=== PATIENT | male | born 1975 | race Caucasian/White ===

== ENCOUNTER 2023-10-02 20:37 | Inpatient (IN) | payer OTHER, SELFPAY ==
[2023-10-02 19:10] VITALS: BP 142/82; BMI 23.2
[2023-10-02] MEDS: DILAUDID 1 MG IV (19:20)
--- NOTE | 2023-10-02 19:59 | ED.GENMED ---
History of Present Illness
General
Chief Complaint: Musculo-Skeletal Complaint
Source: patient, spouse and ambulance crew
Time Seen by Provider: 10/02/23 19:14
Travel History
Have you had any contact with someone who has COVID-19?: No
Do you have any symptoms of coronavirus? Fever > 100 degrees, chills, cough, shortness of breath, sore throat, loss of taste or smell, muscle aches, or headache?: No
History of Present Illness
History of Present Illness:
40-year-old male comes in complaining of severe right groin pain. The patient was at home and had slipped on the tile. His leg went out from under him and he landed straight down. He states his leg was then in abducted position from his hip.
Patient complains of severe in the right groin area. Patient is from [place] and just arrived to visit family
Past History
Past History
ED Past Medical History: Asthma
Phy Exam
Physical Exam
Physical Exam:
CONSTITUTIONAL Vital signs reviewed, Patient alert and oriented to person, place and time. Severe pain distress
HEAD atraumatic, normocephalic.
EYES eyelids normal to inspection, Extraocular muscles intact, Conjunctiva normal, Sclera normal.
NECK normal range of motion, Trachea midline, no jugular venous distention.
RESP no respiratory distress
BACK No obvious deformities
UPPER EXTREMITY Gross Range of motion normal, gross motor strength normal
LOWER EXTREMITY unable to range the right hip due to pain. Moderate to severe tenderness at the medial aspect of the proximal thigh. Moderate tenderness at the right groin.
NEURO Speech normal, No focal motor deficits include, Ketty coma scale 15, Memory normal, Cranial Nerves intact to screening exam.
SKIN Skin warm, dry, and normal in color.
PSYCHIATRIC Patient oriented to person place and time, Normal affect.
Course
Orders/Labs/Results
Orders:
Orders
10/02/23 Breakfast
Regular
At Your Request: Full Participation
10/02/23 19:14
HYDROmorphone [Dilaudid] 1 mg IV NOW STA
10/02/23 19:15
Hip, Right 2-3 Views [CR Hip - RT w/wo Pel 2-3 Vw*] Urgent
Comment:
Reason For Exam: fall
Include a pelvis x-ray?: Yes
10/02/23 20:10
Complete Blood Count/With Diff Urgent
Comprehensive Metabolic Panel Urgent
10/02/23 20:29
Admit/Transfer Patient As Directed
Co-Sign Provider:
Level of Care: Inpatient admission
Assign to:: Medical/Surgical
Physician / Group: ronda
Diagnosis: hip fracture
Reason for Hospitalization: hip fracture
Expected length of stay greater than two midnights?: Yes
ELOS- Estimated Length of Stay in days: 3
I certify the patient meets the requirements for IP care: Yes
10/02/23 20:30
Code Status As Directed
Resuscitation Status: Full Code
10/02/23 22:24
Docusate Sodium [Colace] 100 mg PO BID
Magnesium Hydroxide [Milk of Magnesia] 30 ml PO DAILYPRN PRN
Oxycodone [Roxicodone] 5 mg PO Q4HPRN PRN
Sennosides [Senokot] 17.2 mg PO BID
Tamsulosin [Flomax] 0.4 mg PO DAILYPRN PRN
10/02/23 22:24
ORTHOPEDIC CONSULT Routine
Consulting Provider: Charlie Rubin
Was physician already notified: Yes
Activity As Directed
Activity Level: Bedrest
Bladder Scan As Directed
Follow Bladder Retention/Intermittent Cath Algorithm?: Yes
PRN if no void in __ hours: 6
Comment: if not voiding 6 hrs upon arrival to floor, bladder scan & follow algorithm
Intake/ Output As Directed
Frequency: Per unit guidelines
Pneumatic Compression Sleeves As Directed
Type: Thigh high
Straight Cath As Directed
Frequency: Per Retention Algorithm
Additional Instructions: straight cath as needed per acute urinary retention algorithm for 24 hrs
Additional Instructions: for bladder scan greater than 400 mL
Vital Signs As Directed
Frequency: Per unit guidelines
DX Deep Vein Thrombosis Video Routine
10/03/23 00:00
Acetaminophen [Tylenol] 650 mg PO Q4HWA
10/03/23 Breakfast
NPO
Allow oral meds: Yes
Allow clear liquids: No
Abnormal Lab Results
10/02/23
20:10
RBC 4.49 L 10^6/uL
(4.70-6.10)
Hct 37.5 L %
(39.0-52.0)
MCHC 37.1 H g/dL
(33.0-37.0)
Absolute Neuts (auto) 6.9 H 10^3/uL
(1.4-6.5)
Lymphocytes % 16.8 L %
(20.5-51.1)
Potassium 3.3 L mmol/L
(3.5-5.1)
Glucose 110 H mg/dl
(70-99)
10/02/23 20:10
10/02/23 20:10
Vital Signs
Initial and Last Documented VS:
Initial Vital Signs
Temp Pulse Resp BP Pulse Ox
98.7 F 101 20 142/82 100
10/02/23 19:10 10/02/23 19:10 10/02/23 19:10 10/02/23 19:10 10/02/23 19:10
Last Documented Vital Signs
Temp Pulse Resp BP Pulse Ox
98.7 F 78 20 121/72 96
10/03/23 00:34 10/03/23 00:34 10/03/23 00:34 10/03/23 00:34 10/03/23 00:34
MDM/Problems Addressed
MDM/Problems Addressed:
Intertrochanteric hip fracture
*Radiology
Radiology exam reviewed: preliminary read by ED provider (Intertrochanteric hip fracture)
*Pulse Oximetry
Patient hypoxic: no
*Critical Care Note
Total Time (30-74mins, 75-104mins- exclusive of procedures): Not Applicable
Data Reviewed
Source: patient, family and ambulance crew
Further Testing Considered But Not Given:
Consider head CT but no head strike consider head CT but no head strike
Patient Management
Discussion with other providers: Hospitalist and Clinical Courier (Case discussed with orthopedics)
Escalation/DeEscalation of care consider admission/obs:
Right hip fracture and otherwise healthy male. Admit
ED Attending Note
-
Portions of this chart may have been created with voice recognition software.� Occasional wrong word or��sound alike� substitutions may have occurred due to the inherent limitations of voice recognition software.
Discharge Plan
Departure
Patient Disposition: Admit
Date of Disposition: 10/02/23
Time of Disposition: 19:59
Admit to: Med/Surg
Presentation/result/management discussed w/ accepting MD/DO: Hospitalist
Discharge Problem:
Hip fracture, intertrochanteric
Interventions
Interventions:
*Risk Screen - Suicide Last Done: 10/02/23 19:16
*General Assessment Last Done: 10/02/23 19:16
*Neglect/Abuse Screening Last Done: 10/02/23 19:16
ED- Fall Risk Assessment Last Done: 10/02/23 21:56
*ED COVID-19 Vaccine History Last Done: 10/02/23 19:16
*Nursing Disposition Last Done: 10/02/23 22:00
ED-Musculoskeletal Assessment Last Done: 10/02/23 19:28
Discharge Date and Time
Discharge Date/Time: 10/02/23 22:14
[2023-10-02 20:18] LABS: % Basophils 0.9 % (0-2); % Eosinophils 2.2 % (0-6); % Immature Granulocytes 0.4 % (0-0.5); % Lymphocytes 16.8 % (20.5-51.1); % Monocytes 5.7 % (1.7-9.3); Absolute Basophils 0.1 10^3/uL (0-0.2); Absolute Eosinophils 0.2 10^3/uL (0-0.7); Absolute Lymphocytes 1.6 10^3/uL (1.2-3.4); Absolute Monocytes 0.5 10^3/uL (0.1-0.6); Absolute Neutrophils 6.9 10^3/uL (1.4-6.5); Hematocrit 37.5 % (39.0-52.0); Hemoglobin 13.9 g/dL (13.0-18.0); Mean Corp Hgb Conc. 37.1 g/dL (33.0-37.0); Mean Corpuscular Volume 83.5 fL (80.0-94.0); Mean Platelet Volume 9.6 fL (7.4-10.4); Nucleated Red Blood Cells % 0 % (-); Platelet Count 249 10^3/uL (130-400); Red Blood Cell Count 4.49 10^6/uL (4.70-6.10); Red Cell Dist. Width 11.6 % (11.5-14.5); White Blood Cell Count 9.4 10^3/uL (4.8-10.8)
[2023-10-02 20:34] LABS: ALT (SGPT) 32 U/L (0-50); AST (SGOT) 29 U/L (17-59); Albumin 4.2 g/dl (3.5-5.0); Alkaline Phosphatase 93 U/L (38-126); Blood Urea Nitrogen 17 mg/dl (9-20); Calcium 9.3 mg/dl (8.4-10.2); Carbon Dioxide 22 mmol/L (22-30); Chloride 107 mmol/L (98-107); Estimated Creatinine Clearance 104 ml/min; Glucose 110 mg/dl (70-99); Potassium 3.3 mmol/L (3.5-5.1); Sodium 137 mmol/L (135-145); Total Bilirubin 0.6 mg/dl (0.2-1.3); Total Protein 6.6 g/dl (6.3-8.2); eGFR > 60.00
[2023-10-02 21:00] VITALS: BP 114/73
--- NOTE | 2023-10-02 22:02 | HPS.HSE ---
Family Physician
-
Family Physician: NOT KNOW UNKNOWN - PT DOES
Chief Complaint
-
Hip pain
History of Present Illness
48 man was walking into his kitchen, slipped, fell and broke his hip. No significant PMH. He believes he felt the bone breaking before he hit the ground.
Medical History
Past Medical History
Past Medical History: Reports Other
Additional Past Medical History:
Occasional asthma. Treated with rescue inhaler.
Past Surgical History: Reports None
Social History
Tobacco: Non-smoker
Alcohol: Occasional
Drug: None
Personal:
Living: With Family
Employment: Employed
Family History
Family History: Not pertinent
Allergies / Home Medications
Allergies reflects when Allergies were last updated in [facility].
Home Medications with original date entered in [facility]
Allergy/Medication List:
Allergies
Allergy/AdvReac Type Severity Reaction Status Date / Time
No Known Allergies Allergy Verified 10/02/23 19:18
No meds.
Review of Systems
-
History Source: Patient
A 12 point ROS was completed and negative except as noted: Yes
Physical Exam
Vital Signs
Vital Signs
Temp Pulse Resp BP Pulse Ox
98.7 F 88 13 114/73 95
10/02/23 19:10 10/02/23 21:45 10/02/23 21:45 10/02/23 21:00 10/02/23 21:45
Physical Exam
General: Well Developed, Well Nourished, No Apparent Distress, Comfortable and Conversant
HEENT: NormoCephalic, Moist mucous membranes, Atraumatic, Good Dentition, Nose Appears Normal and Ears Appear Normal
Respiratory: Clear
Cardiac: S1/S2 and Regular Rhythm
GI: Soft, Non Tender and Non Distended
Musculoskeletal: No Clubbing, No Cyanosis and No Edema
Skin: Warm and Dry; No Rash or Jaundice
Neuro: Awake, Alert, Oriented and AO x 3
Psych: Calm
Laboratory Results
-
10/02/23 20:10
10/02/23 20:10
Laboratory Results
Total Bilirubin 0.6 mg/dl (0.2-1.3) 10/02/23 20:10
AST 29 U/L (17-59) 10/02/23 20:10
ALT 32 U/L (0-50) 10/02/23 20:10
Alkaline Phosphatase 93 U/L (38-126) 10/02/23 20:10
Data Reviewed
-
Lab Data: Labs Reviewed by me
Impression/Plan
-
IMPRESSION:
48 man with broken hip. XRay shows:
There is a likely essentially nondisplaced intertrochanteric fracture of the proximal right femur.
The remaining osseous structures appear intact.
There is no suspected focal cortical bony destructive process.
No radiopaque soft tissue abnormality is seen.
PLAN:
1. Broken hip. Appears to be from atypical fall.
Ortho consult
pain control
NPO after MN
Likely surgery in am
Otherwise medically stable
Full code
primary DVTp per surgical team, VCD for now.
--- NOTE | 2023-10-02 22:10 | PTCARENOTE ---
pt arrived to [facility] from ED via stretcher, assisted into [facility] air bed. AAOx3, pleasant and oriented to room. VSS, no c/o pain unless being trasferred. plan of care explained to patient and at beside. questions regarding OR and post op
care answered to best of ability. assessment on going.
[2023-10-02] MEDS: KCL 40 MEQ PO (22:53)
[2023-10-02] MEDS: COLACE PO (22:54)
[2023-10-02] MEDS: SENOKOT PO (22:54)
[2023-10-02 23:22] VITALS: BP 126/77; BMI 22.8
[2023-10-02] MEDS: TYLENOL 650 MG PO (23:42)
[2023-10-03] VITALS (9 sets, daily range): BP systolic 106–139; BP diastolic 63–81; PULSE 101
[2023-10-03] MEDS: ZOFRAN 4 MG IV (00:22)
[2023-10-03] MEDS: TYLENOL 650 MG PO ×4 (05:09→20:03)
[2023-10-03 06:20] LABS: Hematocrit 39.1 % (39.0-52.0); Hemoglobin 13.6 g/dL (13.0-18.0); Mean Corp Hgb Conc. 34.8 g/dL (33.0-37.0); Mean Corpuscular Hgb 30.8 pg (27.0-31.0); Mean Corpuscular Volume 88.5 fL (80.0-94.0); Mean Platelet Volume 10.1 fL (7.4-10.4); Platelet Count 222 10^3/uL (130-400); Red Blood Cell Count 4.42 10^6/uL (4.70-6.10); Red Cell Dist. Width 11.6 % (11.5-14.5); White Blood Cell Count 9.3 10^3/uL (4.8-10.8)
[2023-10-03 06:47] LABS: Blood Urea Nitrogen 16 mg/dl (9-20); Calcium 9.2 mg/dl (8.4-10.2); Carbon Dioxide 26 mmol/L (22-30); Chloride 105 mmol/L (98-107); Estimated Creatinine Clearance 115 ml/min; Glucose 129 mg/dl (70-99); Potassium 4.2 mmol/L (3.5-5.1); Sodium 138 mmol/L (135-145); eGFR > 60.00
[2023-10-03] MEDS: SENOKOT PO (07:36)
[2023-10-03] MEDS: COLACE PO (07:36)
[2023-10-03] MEDS: TYLENOL PO ×2 (07:37→23:53)
--- NOTE | 2023-10-03 08:08 | CON.ORTHO ---
Consultation
-
Date/Time Consultation Requested: 10/02/2023
Date/Time Consultation Performed: 10/03/2023
Requesting Provider: RAJINDER Schroeder
Performing Provider: Danyelle Camacho PA-C, for Dr. Rubin
Reason for Consultation: Right hip intertrochanteric fracture
Consultation - Orthopedics
History
HPI: This is a 48-year-old male who presented to [facility] emergency department after sustaining a fall onto his right hip. He reports he was walking into the kitchen when he changed over from a carpeted area to linoleum. He believes
both of his feet slipped out from under him, landing directly on his right hip. He immediately experienced groin pain and inability to ambulate. X-rays taken in the emergency department showed evidence of a nondisplaced intertrochanteric fracture
of his right hip. He does report a history of back pain recently for which she has been taking naproxen, but otherwise denies any prior issues with his right hip. Our orthopedic specialty was consulted and to discuss definitive management of his
right hip fracture going forward.
Past medical history: Asthma.
Past surgical history: Tubes in ears as a child.
Social history: denies tobacco use. Lives in [place].
Review of systems: All systems reviewed and negative except for those mentioned in HPI.
Allergies / Home Medications
Allergy/AdvReac Type Severity Reaction Status Date / Time
No Known Allergies Allergy Verified 10/02/23 19:18
Vital Signs / Lab Results
Temp Pulse Resp BP Pulse Ox
98.4 F 88 16 139/71 94
10/03/23 07:10 10/03/23 07:10 10/03/23 07:10 10/03/23 07:10 10/03/23 07:10
10/03/23 05:34
10/03/23 05:34
Physical examination:
General: WD/WN male in no acute distress at rest. AAO x 4.
HEENT: AT/NC, neck supple.
Lungs: Non labored breathing on room air, no audible wheezing.
Heart: RRR.
Right hip: Mild swelling and TTP over lateral hip. ROM not tested. N/v intact distally.
Radiographic studies:
X-rays of the right hip from 10/02/2023 shows evidence of a non displaced intertrochanteric fracture.
Assessment / Plan
Assessment: Right hip intertrochanteric fracture.
Plan: Unfortunately, Shelton sustained a right hip fracture during his fall yesterday. We discussed treatment recommendations going forward to include both surgical and non surgical interventions. At this time, recommendation is to proceed with
surgery in the form of a right hip open reduction, internal fixation in the form of gamma nail. This will be done under the direction of Dr. Rubin on . The procedure was discussed at length, along with the associated risks, benefits, and
expected recovery process. Both surgical and blood transfusion consents were obtained and placed in the patient's chart. His right hip was marked as the correct surgical site. IV antibiotics are on-call to the OR. He has been n.p.o. since
midnight. He does live in [place], so we will see how he does with PT and whether he will be discharged home or need to go to rehab postoperatively. He will be on aspirin 325 mg p.o. daily for DVT prophylaxis postoperatively. All questions were
answered and patient and his were in agreement with treatment recommendations.
--- NOTE | 2023-10-03 10:05 | W.IMMPOSTOP ---
Surgical Immed Post Op Note
-
Primary Surgeon: Caryn
Assisting Surgeon: Danyelle Camacho PA-C
Pre-op Diagnosis: Right hip intertrochanteric fracture
Post-op Diagnosis: Same
Procedure Performed: Right hip Gamma nail fixation
Anesthesia Type: General
Specimen / Cultures: Right femoral reaming
Estimated Blood Loss: 10cc
Complications: None
Operative Findings: Dictated
Plan:
- WBAT RLE
- PT/ OT
- ASA 325 daily for 30 days
[2023-10-03] MEDS: NORMOSOL-R 1000 IV (11:02)
--- NOTE | 2023-10-03 11:19 | PTCARENOTE ---
Pt returned from to 2S in bed. RLE aquacels x3 C/D/I. RLE with decreased movement, neurovascular assessment otherwise WDL. IVF infusing per order. Pt drowsy sleeping between care, easily arouses to verbal stimuli. Bed locked and in the lowest
position, safety maintained. Oriented to room and call hanson, at bedside.
--- NOTE | 2023-10-03 15:15 | CM ---
Patient with right hip Fx who is s/p Right hip Gamma nail fixation. PT/OT Evals pending.
Met with patient, Connie and sister in law Katelin;
the patient resides with his and their children in [place] in a 2 story house with 6 + 6 outside stairs, 13 stairs to bedroom/bath.
The patient was independent in ADLs and ambulation.
He and his are here visiting his mother in law in [place]- she has a 1 story house with ramp at entrance.
The patient has no DME, prior VN or SNF.
The patient has no PCP.
[place] [facility] [place]acy in [place] - [place] [id number] [facility]
Patient/, AYESHA wanted to discuss possible d/c options.
Patient interested in discharging to his mother in law's house in [place] with VN (as he has no PCP ortho MD would be asked to sign VN orders).
If does not do well with rehab he would be interested in going to [facility].
Plan follow up after PT/OT Evals.
[2023-10-03] MEDS: ANCEF 5 IV (17:14)
[2023-10-03] MEDS: ASPIRIN 325 MG PO (17:14)
--- NOTE | 2023-10-03 18:11 | W.PN.HOSP.TC ---
Today's Communication/Plan
-
Patient doing well
Continue Aspirin 325 daily DVT prophylaxis
Assessment / Plan
Assessment / Plan
Physical Exam
General: Well Developed, Well Nourished, No Apparent Distress, Comfortable and Conversant
HEENT: Normocephalic, Moist mucous membranes
Respiratory: Clear
Cardiac: S1/S2 and Regular Rhythm
GI: Soft, Non Tender and Non Distended
Musculoskeletal: No Cyanosis and No Edema
Skin: Warm and Dry; No Rash or Jaundice
Neuro: Awake, Alert, Oriented and AO x 3
Psych: Calm

Assessment/Plan
Right hip intertrochanteric fracture status post right hip Gamma nail fixation
-Ortho consulted, recommendations appreciated
-Surgery performed on October 03, 2023
-WBAT RLE
-PT/ OT
-ASA 325 daily for 30 days
History of Asthma
-Stable
Otherwise medically stable
Full code
primary DVT PPx: Aspirin 325 mg daily
Anticipated Discharge: 24 - 48 hours
Subjective/Interval History
-
Date of Service: October 03, 2023
Patient was seen and examined after his surgery. He was sitting up in his chair comfortably and denied any pain or any complaints.
Objective Data
-
Labs:
Laboratory Results
10/03/23
05:34
WBC 9.3
Hgb 13.6
Hct 39.1
Plt Count 222
Sodium 138
Potassium 4.2 D
Chloride 105
Carbon Dioxide 26
BUN 16
Creatinine 0.8
Glucose 129 H
Calcium 9.2
Vital Signs:
Vital Signs
Temp Pulse Resp BP Pulse Ox
97.7 F 93 18 111/77 97
10/03/23 15:10 10/03/23 15:10 10/03/23 15:10 10/03/23 15:10 10/03/23 15:10
I&O
10/02/23 10/03/23 10/04/23
06:59 06:59 06:59
Intake Total 1160 / 1160
Output Total 350 / 350 800 / 800
Balance -350 / -350 360 / 360
[2023-10-03] MEDS: CELEBREX 100 MG PO (20:02)
[2023-10-03] MEDS: SENOKOT 17.1999999999999993 MG PO (20:04)
[2023-10-03] MEDS: COLACE 100 MG PO (20:05)
[2023-10-04] VITALS (7 sets, daily range): BP systolic 105–137; BP diastolic 62–71; PULSE 79–83
[2023-10-04] MEDS: ANCEF 5 IV (00:33)
[2023-10-04] MEDS: TYLENOL 650 MG PO ×5 (04:14→19:32)
[2023-10-04] MEDS: ROXICODONE 5 MG PO ×3 (05:31→22:58)
[2023-10-04 06:52] LABS: Hematocrit 34.6 % (39.0-52.0); Mean Corp Hgb Conc. 34.7 g/dL (33.0-37.0); Mean Corpuscular Hgb 31.1 pg (27.0-31.0); Mean Corpuscular Volume 89.6 fL (80.0-94.0); Mean Platelet Volume 10.4 fL (7.4-10.4); Platelet Count 191 10^3/uL (130-400); Red Blood Cell Count 3.86 10^6/uL (4.70-6.10); Red Cell Dist. Width 11.9 % (11.5-14.5); White Blood Cell Count 11.2 10^3/uL (4.8-10.8)
[2023-10-04 07:20] LABS: Blood Urea Nitrogen 18 mg/dl (9-20); Calcium 8.9 mg/dl (8.4-10.2); Carbon Dioxide 24 mmol/L (22-30); Chloride 107 mmol/L (98-107); Estimated Creatinine Clearance 115 ml/min; Glucose 115 mg/dl (70-99); Potassium 4.2 mmol/L (3.5-5.1); Sodium 137 mmol/L (135-145); eGFR > 60.00
--- NOTE | 2023-10-04 08:07 | W.PN.HOSP.TC ---
Today's Communication/Plan
-
Physiatry consult, ?[facility]
Assessment / Plan
Assessment / Plan
Assessment/Plan
Right hip intertrochanteric fracture status post right hip Gamma nail fixation
-Ortho consulted, recommendations appreciated
-Surgery performed on October 03, 2023
-WBAT RLE
-PT/ OT
-ASA 325 daily for 30 days
History of Asthma
lungs totally clear
BPH
due to immobility, will check UA
Constipation
continue Colace, Senokot
Otherwise medically stable
Full code
primary DVT PPx: Aspirin 325 mg daily
Physiatry consult
PT/OT
Potential [facility] candidate
Pt lives in [place], was visiting in-laws when fell and broke hip, if felt not a candidate for acute rehab, will need decision whether he will get PT locally or upon return to [place], pending decision on acute rehab
Anticipated Discharge: 24 - 48 hours
Subjective/Interval History
-
Date of Service: October 04, 2023
Awake, alert, moderate pain with movement
Objective Data
-
Labs:
Laboratory Results
10/04/23
06:12
WBC 11.2 H
Hgb 12.0 L
Hct 34.6 L
Plt Count 191
Sodium 137
Potassium 4.2
Chloride 107
Carbon Dioxide 24
BUN 18
Creatinine 0.8
Glucose 115 H
Calcium 8.9
Vital Signs:
Vital Signs
Temp Pulse Resp BP Pulse Ox
98.2 F 77 14 112/71 99
10/04/23 07:05 10/04/23 07:05 10/04/23 07:05 10/04/23 07:05 10/04/23 07:05
I&O
10/03/23 10/04/2310/04/24
06:59 06:59 06:59
Intake Total 1640 / 1640
Output Total 350 / 350 1150 / 1150
Balance -350 / -350 490 / 490
Review of Systems
-
History Source: Patient and Coordinated Provider (reviewed with DANY Bassett)
Constitutional: Denies Fever
EENT: Reports No Symptoms Reported
Respiratory: Reports No Symptoms
Cardiac: Reports No Symptoms
Abdomen/GI: Reports Constipated
Genitourinary: Reports No Symptoms (hx of BPH)
Musculoskeletal: Reports Joint Pain
Neuro: Reports No Symptoms
Physical Exam
-
General: Well Developed, Well Nourished and No Apparent Distress
HEENT: Normocephalic, Atraumatic and Moist Mucous Membranes
Respiratory: Clear to Auscultation; Negative Wheezes, Rales or Rhonchi
Cardiac: Regular Rhythm and S1/S2
GI: Soft, Nontender and Nondistended
Musculoskeletal: No Clubbing, No Cyanosis and No Edema
[2023-10-04] MEDS: COLACE 100 MG PO ×2 (08:36→19:32)
[2023-10-04] MEDS: CELEBREX 100 MG PO ×2 (08:36→19:32)
[2023-10-04] MEDS: SENOKOT 17.1999999999999993 MG PO ×2 (08:36→19:32)
[2023-10-04] MEDS: ASPIRIN 325 MG PO (08:36)
--- NOTE | 2023-10-04 11:15 | W.PN.ORTHO ---
Today's Communication / Plan
-
POD #1 s/p right hip gamma nail
- WBAT with walker.
- PT/OT to tolerance.
- ASA 325 mg po daily x 4 weeks for DVT prophylaxis.
- Dressings good for 7 days.
- Harpal to be removed in 2 weeks, repeat x-rays in 4 weeks.
- Appreciate case management's efforts in d/c planning - options [facility] vs. home with home care.
- Will continue to follow.
Assessment
.
Distal Motor Intact: Yes
Dressing:
Clean, dry and intact.
Assessment:
POD #1 s/p right hip gamma nail
- WBAT with walker.
- PT/OT to tolerance.
- ASA 325 mg po daily x 4 weeks for DVT prophylaxis.
- Dressings good for 7 days.
- Harpal to be removed in 2 weeks, repeat x-rays in 4 weeks.
- Appreciate case management's efforts in d/c planning - options [facility] vs. home with home care.
- Will continue to follow.
Plan
.
Surgery / Date: 10/03/23 - right hip gamma nail - Dr. Rubin
DVT Prophylaxis: Aspirin
Activity:
Out of bed.
PT/OT
Discharge Plan: Home w/ Outpatient PT and Rehab
Subjective
.
.:
Patient resting comfortably in bed on my arrival. Admits to some discomfort about medial thigh and knee with motion, but comfortable at rest.
Vital Signs and Labs
.
Vital Signs and Labs:
Lab Results
10/04/23 06:12
10/04/23 06:12
Temp Pulse Resp BP Pulse Ox
98.2 F 77 14 112/71 99
10/04/23 07:05 10/04/23 07:05 10/04/23 07:05 10/04/23 07:05 10/04/23 07:05
Physical Exam
-
Right hip: dressings c/d/i. No erythema or drainage. Mild diffuse swelling, no ecchymosis. No swelling of knee. Gentle ROM with minimal pain, negative logroll. Calf soft and non tender. N/v intact distally
--- NOTE | 2023-10-04 13:41 | CM ---
Received notification from RN that patient/family wanted to meet with CM. Spoke with patient's who explained that although patient is progressing well, he is far from his baseline which is independent without device. Patient's stated that
they are in visiting from [place] and she would be unable to transport patient back until he is closer to his previous level of functioning. Patient's stated that they also have a young daughter for whom they provide care. Patient's
stated that if insurance authorizes, she would would like for patient to go to acute rehab as this would help his regain a lot of the strength that he lost after the surgery and she would at least be able to transport him home so that he can follow
up with outpatient rehab.
Family updated that referral will be made to acute rehab and that admissions will look to determine that he is appropriate in the am. Patient's family very appreciative.
Plan: Case management will continue to follow and assist with discharge planing. Family hopeful for acute rehab transfer to [facility] (1st choice) if there is availability and if auth can be obtained.
[2023-10-04 15:33] LABS: Urine Albumin Trace (Neg - Trace); Urine Bilirubin 1+ (Negative); Urine Character Clear (Clear); Urine Color Amber; Urine Glucose Trace (Negative); Urine Ketone 1+ (Negative); Urine Leukocyte Trace (Negative); Urine Nitrite Negative (Negative); Urine Occult Blood Negative (Negative); Urine Specific Gravity 1.025 (<1.030); Urine Urobilinogen 1+ (Neg - 1+)
[2023-10-04 15:43] LABS: Urine Mucus Many; Urine Squamous Cell 0-2 /LPF (Few)
[2023-10-04 15:44] LABS: Urine Bacteria Few (Negative); Urine Calcium Oxalate Crystals Seen; Urine Red Blood Cell 0-2 /HPF (0-2)
[2023-10-05] MEDS: TYLENOL PO (00:12)
[2023-10-05] MEDS: TYLENOL 650 MG PO ×6 (03:23→23:16)
[2023-10-05 05:55] LABS: Hematocrit 31.8 % (39.0-52.0); Hemoglobin 11.1 g/dL (13.0-18.0); Mean Corp Hgb Conc. 34.9 g/dL (33.0-37.0); Mean Corpuscular Hgb 30.7 pg (27.0-31.0); Mean Corpuscular Volume 88.1 fL (80.0-94.0); Mean Platelet Volume 10.4 fL (7.4-10.4); Platelet Count 179 10^3/uL (130-400); Red Blood Cell Count 3.61 10^6/uL (4.70-6.10); White Blood Cell Count 7.3 10^3/uL (4.8-10.8)
[2023-10-05 06:40] LABS: Blood Urea Nitrogen 21 mg/dl (9-20); Calcium 8.9 mg/dl (8.4-10.2); Carbon Dioxide 26 mmol/L (22-30); Chloride 107 mmol/L (98-107); Estimated Creatinine Clearance 92 ml/min; Glucose 93 mg/dl (70-99); Potassium 4.2 mmol/L (3.5-5.1); Sodium 139 mmol/L (135-145); eGFR > 60.00
[2023-10-05 07:00] VITALS: BP 119/72
--- NOTE | 2023-10-05 07:25 | W.PN.ORTHO ---
Addendum entered and electronically signed by Charlie Rubin MD 10/05/23 13:12:
Patient seen and examined.
Agree with A/P from Nolvia Swanson PA-C
Patient has swelling over right hip. Dressings are C/D/I
There is pain and weakness with hip and knee ROM
Pain control
D/C planning
Original Note:
Today's Communication / Plan
-
POD #2 s/p right hip gamma nail
- WBAT with walker.
- PT/OT to tolerance.
- ASA 325 mg po daily x 4 weeks for DVT prophylaxis.
- Dressings good for 7 days.
- Continue with pain medications and ice as needed.
- Harpal to be removed in 2 weeks, repeat x-rays in 4 weeks.
- Appreciate case management's efforts in d/c planning - options [facility] vs. home with home care.
- Will continue to follow.
Assessment
.
Distal Motor Intact: Yes
Dressing:
Clean, dry and intact.
Plan
.
Surgery / Date: 10/03/23 - right hip gamma nail - Dr. Rubin
DVT Prophylaxis: Aspirin
Activity:
Out of bed.
PT/OT
Subjective
.
.:
Patient resting comfortably in bed on my arrival. He admits to some swelling and discomfort to the thigh and with motion of the knee. He reports that the hardest thing for him is transitioning from sitting to standing and getting in and out of the
bed. His pain improves with pain medications and ice.
Vital Signs and Labs
.
Vital Signs and Labs:
Lab Results
10/05/23 04:48
10/05/23 04:48
Temp Pulse Resp BP Pulse Ox
98.4 F 74 18 107/67 99
10/04/23 23:00 10/04/23 23:00 10/04/23 23:00 10/04/23 23:00 10/04/23 23:00
Physical Exam
-
Right hip: dressings c/d/i. No erythema or drainage. Mild diffuse swelling, no ecchymosis. No swelling of knee. Gentle ROM with minimal pain, negative logroll. Calf soft and non tender. N/v intact distally
--- NOTE | 2023-10-05 08:02 | W.PN.HOSP.TC ---
Addendum entered and electronically signed by Robbie Chao MD 10/05/23 13:34:
call from respiratory therapy, pt refusing Mininebs, wants MDI only. Order changed
Original Note:
Today's Communication/Plan
-
Physiatry consult pending
Assessment / Plan
Assessment / Plan
Assessment/Plan
Right hip intertrochanteric fracture status post right hip Gamma nail fixation
-Ortho consulted, recommendations appreciated
-Surgery performed on October 03, 2023
-WBAT RLE
-PT/ OT
-ASA 325 daily for 30 days
History of Asthma
lungs with wheeze noted
will order scheduled Duonebs for today along with Claritin
BPH
due to immobility, UA demonstrates minimal WBC/Bact consistent with chronic prostatitis
Constipation
continue Colace, Senokot
Otherwise medically stable
Full code
primary DVT PPx: Aspirin 325 mg daily
Physiatry consult
PT/OT
Potential [facility] candidate
Pt lives in [place], was visiting in-laws when fell and broke hip, if felt not a candidate for acute rehab, will need decision whether he will get PT locally or upon return to [place], pending decision on acute rehab
Duonebs, Claritin
Anticipated Discharge: 24 - 48 hours
Subjective/Interval History
-
Date of Service: October 05, 2023
Awake, alert, had BM late yesterday
Objective Data
-
Labs:
Laboratory Results
10/05/23
04:48
WBC 7.3
Hgb 11.1 L
Hct 31.8 L
Plt Count 179
Sodium 139
Potassium 4.2
Chloride 107
Carbon Dioxide 26
BUN 21 H
Creatinine 1.0
Glucose 93
Calcium 8.9
Vital Signs:
Vital Signs
Temp Pulse Resp BP Pulse Ox
97.4 F 69 18 119/72 100
10/05/23 07:00 10/05/23 07:00 10/05/23 07:00 10/05/23 07:00 10/05/23 07:00
I&O
10/04/23 10/05/23 10/06/23
06:59 06:59 06:59
Intake Total 1640 / 1640 1080 / 1080
Output Total 1150 / 1150 300 / 300
Balance 490 / 490 780 / 780
Review of Systems
-
History Source: Patient and Coordinated Provider (reviewed with DANY Bassett)
Constitutional: Denies Fever
EENT: Reports Other (nasal stuffiness)
Respiratory: Reports No Symptoms; Denies Trouble Breathing (denies sob, states had hx of asthma as a child, outgrew it, though during high pollen season does require occassional doses of albuterol)
Cardiac: Reports No Symptoms
Abdomen/GI: Reports Constipated (had hard BM last evening)
Genitourinary: Reports No Symptoms (hx of BPH)
Musculoskeletal: Reports Joint Pain (rt hip)
Neuro: Reports No Symptoms
Physical Exam
-
General: Well Developed, Well Nourished and No Apparent Distress
HEENT: Normocephalic, Atraumatic and Moist Mucous Membranes
Respiratory: Wheezes (end expiratory wheeze with good air movement); Negative Rales or Rhonchi
Cardiac: Regular Rhythm and S1/S2
GI: Soft, Nontender and Nondistended
Musculoskeletal: No Clubbing, No Cyanosis and No Edema
[2023-10-05] MEDS: ASPIRIN 325 MG PO (08:43)
[2023-10-05] MEDS: CLARITIN 10 MG PO (08:43)
[2023-10-05] MEDS: CELEBREX 100 MG PO ×2 (08:43→20:31)
[2023-10-05] MEDS: SENOKOT 17.1999999999999993 MG PO (08:44)
[2023-10-05] MEDS: COLACE 100 MG PO ×2 (08:44→20:31)
[2023-10-05 10:51] VITALS: BP 134/84; PULSE 88; O2SAT 100
[2023-10-05] MEDS: ROXICODONE 5 MG PO ×2 (10:54→16:23)
--- NOTE | 2023-10-05 12:10 | CON.MD ---
Consultation - Medical
-
Referring Provider: Dr. Robbie Chao
Chief Complaint: Right hip fracture
History of Present Illness: 48-year-old male with PMH (as below) presented to [facility] on 10/02/2023 with right hip pain after slip and fall in the kitchen floor. X-rays noting a nondisplaced intertrochanteric right hip fracture. On
10/03/2023 he had a right hip cephalomedullary nail fixation with [place] gamma nail by Dr. Charlie Rubin. He is weightbearing as tolerated with aspirin 325 mg for DVT prophylaxis for 4 weeks.
Past Medical History: Asthma, BPH
Procedure History: Tubes in ears as a child.
Family History: None pertinent
Social History:
Functional Level Premorbidly: Independent with all activities
Functional Level Currently:��10/04/23 Supervision for ADLs and bed mobility except for min assist for shower transfer. Supervision for transfers. Ambulated 200 feet with supervision.
10/05/23: Min A bed mobility, supervision transfers. Ambulated 25 feet x 1 with supervision.
Tobacco: Denies
Alcohol: Occasional
Drug use: Denies
Lives with: and 6-year-old daughter
24-hour assistance available: No
Number of floors: 2
# steps to enter: 6+6 steps to enter
# steps to second floor: Full flight
Potential First floor set up: Could stay at mother or [id number] who have one-story homes.
Driving: Yes
Occupation: Employed
Allergies:
Allergy/AdvReac Type Severity Reaction Status Date / Time
No Known Allergies Allergy Verified 10/02/23 19:18
Review of Systems:
Constitutional: (x) abNormal _fatigue
Eye: (x) Normal _
Ear/Nose/Throat: (x) Normal _
Respiratory: (x) Normal _
Cardiovascular: (x) Normal _
Gastrointestinal: (x) Normal _
Genitourinary: (x) Normal _
Musculoskeletal: (x) abNormal _Right hip pain and stiffness.
Integumentary: (x) Normal _
Neurologic: (x) Normal _
Psychiatric: (x) Normal _
Endocrine: (x) Normal _
Hematologic/Lymphatic: (x) Normal _
Allergic/Immunologic: (x) Normal _
Medications:
Active Current Visit Medication List
Category Date Time Status
Acetaminophen [Tylenol] Med 10/03/23 12:00 Active
650 mg PO Q4HWA
Albuterol [ProAIR HFA INHALER] Med 10/05/23 14:02 Active
2 puff INH R Q4HPRN PRN
Aspirin Med 10/03/23 18:00 Active
325 mg PO DAILY
Celecoxib [Celebrex] Med 10/03/23 20:00 Active
100 mg PO BID
Docusate Sodium [Colace] Med 10/02/23 22:24 Active
100 mg PO BID
Flush (0.9% Sodium Chloride) [Flush (Nss)] Med 10/02/23 22:00 Active
See Dose Instructions IV PER PROTOCOL
Loratadine [Claritin] Med 10/05/23 09:00 Active
10 mg PO DAILY
Mag Hydrox/Al Hydrox/Simeth [Maalox] Med 10/03/23 09:49 Active
30 ml PO Q4HPRN PRN
Magnesium Hydroxide [Milk of Magnesia] Med 10/02/23 22:24 Active
30 ml PO DAILYPRN PRN
Ondansetron Injectable [Zofran] Med 10/03/23 09:49 Active
4 mg IV Q6HPRN PRN
Oxycodone [Roxicodone] Med 10/02/23 22:24 Active
5 mg PO Q4HPRN PRN
Sennosides [Senokot] Med 10/02/23 22:24 Active
17.2 mg PO BID
Tamsulosin [Flomax] Med 10/02/23 22:24 Active
0.4 mg PO DAILYPRN PRN
Vitals:
Temp Pulse Resp BP Pulse Ox
98.2 F 88 18 115/65 100
10/05/23 15:00 10/05/23 15:00 10/05/23 15:00 10/05/23 15:00 10/05/23 15:00
Height 5 ft 10 in
Actual Weight 72.212 kg
Body Mass Index (BMI) 22.8
Physical Exam:
General Appearance/Observation: Well-developed, well-nourished male in pain with movement
Pain/Comfort Assessment: Moderate to severe hip pain.
Mood/Affect: Appropriate
Integumentary/Operative Site: Right hip aquacels with scant drainage
�� Pressure Ulcer Evaluation: absent over heels.
Eyes: Conjunctiva/Lids: normal ��� Pupils: pupils equal round and reactive to light and Accommodation
Ears/Nose/Throat: oral mucosa moist,� throat clear.������������ Lips/Teeth/Gums: normal
Neck: No muscle spasm or tenderness
Cardiovascular: Heart: regular, no murmur
Pulses: dorsalis pedis 2+ bilaterally
Respiratory: Respiratory Effort/Chest Expansion: normal ������ Auscultation: Clear to auscultation bilaterally
Gastrointestinal: abdomen not tender, no distension, normal abdominal bowel sounds
Genitourinary: No Carl
Extremities: Edema: Mild right hip edema Cyanosis: None Trophic changes: None
Neurology Exam:
Orientation: Alert, Oriented to self, Time, Place
Memory: Intact for recent medical concerns.
Comprehension: Intact
Two step command: Intact
Cranial Nerves:
�� CNII: Pupillary light reflex: Intact���
�� CN VII: Facial movement: Symmetric
�� CN VIII: Hearing: Normal
�� CN IX/X: Speech & swallow: Normal, Position of Uvula: Midline
�� CN XI: Shoulder shrug: Symmetric
�� CN XII: Tongue protrusion: Midline
Sensory:
�� Light touch: Intact in bilateral upper and lower extremities, no extinction to double simultaneous stimulation
Reflexes:
�� Biceps: 2+ bilaterally
�� Brachioradialis: 2+ bilaterally
�� Triceps: 2+ bilaterally
�� Patellar: 2+ bilaterally
�� Achilles: 2+ bilaterally
�� Babinski: Down going bilaterally
�� Clonus: None
�� Paulina: Negative bilaterally
Musculoskeletal:Motor: (Manual muscle scale 0-5)
Muscle SA EF WE EE FF FA HF KE DF EHL PF
Right� 5 5 5 5 5 5 1* 1* 5 5 5
Left 5 5 5 5 5 5 5 5 5 5 5
*limited by pain
Tone: Normal in all extremities
Range of Motion: Passively within normal limits in all extremities except left hip limited by pain.
Lab Results
Laboratory Data
10/05/23 04:48
10/05/23 04:48
Total Bilirubin 0.6 mg/dl (0.2-1.3) 10/02/23 20:10
AST 29 U/L (17-59) 10/02/23 20:10
ALT 32 U/L (0-50) 10/02/23 20:10
Alkaline Phosphatase 93 U/L (38-126) 10/02/23 20:10
Total Protein 6.6 g/dl (6.3-8.2) 10/02/23 20:10
Albumin 4.2 g/dl (3.5-5.0) 10/02/23 20:10
Diagnostic Results: as per HPI
Assessment
48-year-old male with PMH (Asthma, BPH) presented to [facility] on 10/02/2023 with right hip pain after slip and fall in the kitchen floor. X-rays noting a nondisplaced intertrochanteric right hip fracture. On 10/03/2023 he had a right hip
cephalomedullary nail fixation with [place] gamma nail by Dr. Charlie Rubin. He is weightbearing as tolerated with aspirin 325 mg for DVT prophylaxis for 4 weeks.
Plan
PM&R PT/OT to increase independence with ADLs, improve balance, coordination, endurance, strength, mobility, community reintegration, decreased burden of care on others and family education.
Status post right hip ORIF with IM nail 10/03/23: Monitor incision, pain control, incision care per orthopedics, may shower. Maintain full range of motion.
-Case discussed with Dr. Rubin, healing well, minimal swelling.
Asthma: Continue inhaler as needed.
Post operative Anemia: Continue to monitor.
FEN: Regular diet
Pain: acetaminophen or oxycodone as needed. Encourage pain medication usage
- Can trial lidocaine patches over right hip.
- Trial baclofen 5 mg TID for spasms, can increase to 10 mg.
- Ice right hip.
Bowel: Colace and Senna, PRN bisacodyl.
Bladder: Time void, PVRs, PRN straight cath.
DVT Prophylaxis: Mechanical and full dose aspirin per ortho.
Pulmonary: Incentive spirometry
Safety: Continue to reinforce assistance with all transfers.
Code Status:� Full code
Dispo (date/plan/equipment needs): Home with family care.
Discharge Destination: Would benefit from acute inpatient rehabilitation given uncontrolled pain, limited ambulation to 25 feet.
Functional and Medical Goals: Modified Independent with ADL�s, ambulation, transfers
Summary of recommendations:
- Discharge Destination: Would benefit from acute inpatient rehabilitation given uncontrolled pain, limited ambulation to 25 feet.
Status post right hip ORIF with IM nail 10/03/23: Monitor incision, pain control, incision care per orthopedics, may shower. Maintain full range of motion.
Post operative Anemia: Continue to monitor.
Pain: acetaminophen or oxycodone as needed. Encourage pain medication usage
- Can trial lidocaine patches over right hip.
- Trial baclofen 5 mg TID for spasms, can increase to 10 mg.
- Ice right hip.
Bowel: Colace and Senna, PRN bisacodyl.
Bladder: Time void, PVRs, PRN straight cath.
DVT Prophylaxis: Mechanical and full dose aspirin per ortho.
A total of 80 minutes were spent with the patient preparing for the evaluation, obtaining history, performing examination and evaluation, counseling, data review, case management, care coordination, order puller, and EMR documentation. Reviewed
concerns with patient, , sister in law, nursing, Dr. Rubin.
Thank you for allowing me to care for your patient. Please contact me with any questions or concerns.
--- NOTE | 2023-10-05 14:27 | CM ---
Discussed discharge plan of care at length with patient, and [id number] (via phone). Gave detailed explanation of discharge process, the difference between acute and sub-acute rehabs and the need for an insurance authorization. All
questions answered. Family wants acute rehab. Stock Buyer evaluated patient and determined patient was too high functioning and did not meet criteria for acute rehab. This CM had given [employer] lists for both acute and sub-acute prior to
Physiatry evaluation. CM requested choosing several preferences and CM will forward referrals. Awaiting preferences for SNF.
[2023-10-05 14:29] VITALS: BP 109/77; PULSE 105
[2023-10-05 15:00] VITALS: BP 115/65
[2023-10-05] MEDS: SENOKOT PO (20:44)
[2023-10-05 23:00] VITALS: BP 109/63
[2023-10-06] MEDS: TYLENOL 650 MG PO ×4 (03:00→16:06)
[2023-10-06] MEDS: ROXICODONE 5 MG PO ×2 (04:27→11:17)
--- NOTE | 2023-10-06 07:27 | W.PN.UPDATE ---
Update Note
Progress Note Update
Mr. Hare is POD3 following his right hip gamma nail performed by Dr. Rubin. He is resting comfortably in bed this morning. He does report a consistent aching pain in his hip and thigh. He was able to work with physical therapy yesterday without
significant difficulty.
Directed exam of the right hip reveals Aqaucel dressing with slight strikethrough of blood. Expected post-operative edema about the hip and proximal thigh. Thigh soft and compressible. Calf soft and nontender. Patient able to wiggle toes, plantar
and dorsiflex ankle. Neurovascularly intact distally.
hgb pending this AM.
48 yo M POD3 right hip gamma nail under the direction of Dr. Rubin
- WBAT with walker. PT/OT to tolerance.
- Recommend ASA 325 mg po daily x 4 weeks for DVT prophylaxis.
- Maintain dressings until 7-10 days post-op. [place] to be removed in 2 weeks, repeat x-rays in 4 weeks.
- Continue with pain medications and ice as needed.
- Appreciate case management's efforts in d/c planning - options [facility] vs. home with home care.
- Will continue to follow.
[2023-10-06 07:39] LABS: Hematocrit 31.9 % (39.0-52.0); Mean Corp Hgb Conc. 34.5 g/dL (33.0-37.0); Mean Corpuscular Hgb 30.6 pg (27.0-31.0); Mean Corpuscular Volume 88.9 fL (80.0-94.0); Mean Platelet Volume 10.1 fL (7.4-10.4); Platelet Count 187 10^3/uL (130-400); Red Blood Cell Count 3.59 10^6/uL (4.70-6.10); Red Cell Dist. Width 12.2 % (11.5-14.5); White Blood Cell Count 6.9 10^3/uL (4.8-10.8)
[2023-10-06 08:00] VITALS: BP 116/72
[2023-10-06] MEDS: ASPIRIN 325 MG PO (08:57)
[2023-10-06] MEDS: CELEBREX 100 MG PO (08:58)
[2023-10-06] MEDS: CLARITIN 10 MG PO (08:58)
[2023-10-06] MEDS: COLACE 100 MG PO (08:58)
[2023-10-06] MEDS: SENOKOT PO (09:01)
[2023-10-06 09:05] LABS: Blood Urea Nitrogen 20 mg/dl (9-20); Calcium 9.2 mg/dl (8.4-10.2); Carbon Dioxide 23 mmol/L (22-30); Chloride 108 mmol/L (98-107); Estimated Creatinine Clearance 115 ml/min; Glucose 88 mg/dl (70-99); Potassium 4.3 mmol/L (3.5-5.1); Sodium 139 mmol/L (135-145); eGFR > 60.00
[2023-10-06 09:11] VITALS: BP 115/82
--- NOTE | 2023-10-06 10:17 | PN.CDI ---
CDI
- -
CDI:
Physician Documentation Request
Admit Date: 10/02/23 20:37
Dear Doctor Jeremie,
Please review the following and provide your response in the progress notes.
Clinical Indicators:
Pt admitted with right femur intertrochanteric fracture s/p gamma nailing on 10/02
Documented per rehab consult, ' Post operative Anemia: Continue to monitor....'
10/02/23 10/06/23
20:10 06:50
Hgb 13.9 11.0 L
Hct 37.5 L 31.9 L
Based on the above, could you clarify, in your progress note, which of the following is the most likely type of anemia you are evaluating, monitoring and/or treating?
Acute blood loss anemia
Post operative Anemia only
Other
Use of terms such as suspected, likely, concern for, or probable (associated with a specific diagnosis that is being evaluated, monitored, or treated as if it exists) are acceptable and can be coded in the inpatient setting, when documented at the
time of discharge.
Thank you,
Xochilt Veronica RN
CDI Specialist
[facility] [employer]
Please use your independent medical judgment in providing your response.
--- NOTE | 2023-10-06 11:42 | CM ---
Addendum entered by Gail Castelan 10/06/23 16:08:
Marimar from [facility] at called to state that patient was now approved for admission to [facility] at . CM spoke with Tammi at the department for insurance and she approved 7 inpatient admission days at [facility]. starting 10/05-10/11. Patient
authorization # is [id number] and CM updated [facility] with fax number of /phone number is [phone]. CM updated patient and . Patient given phone number of Freddy for update on any co-pays or authorization. Family very happy
with plan for discharge to [facility] after 5pm per Marimar. Physician and nursing made aware. CM will continue to follow for discharge planning needs.
Plan; transfer to [facility] at
Original Note:
CM spoke with Admissions at [facility], they are willing to accept to either [place] vs [facility] locations but no beds at [facility] in . CM spoke with patient and update provided. Patient requested referral to [facility]. CM sent
referral via all scripts. CM spoke with insurance and they are unable to approve the referral until inpatient stay is approved, referrence number for hospital stay is #[id number]. Patient reference number for acute rehab is # [id number]. CM awaiting
response from [facility] and from the insurance re authorization. Patient physician updated. CM will continue to follow for discharge planning needs.
Plan; Acute rehab
[2023-10-06 13:00] VITALS: BP 111/76; PULSE 92
--- NOTE | 2023-10-06 14:42 | W.PN.HOSP.TC ---
Addendum entered and electronically signed by Robbie Chao MD 10/06/23 16:35:
call from ZAMZAM Wan. Pt accepted to [facility] and has insurance auth
will dc and transfer to there now.
Made 2nd visit to pt and he is aware of planned transfer. reviewed with at bedside
Original Note:
Today's Communication/Plan
-
await determination of insurance
Assessment / Plan
Assessment / Plan
Assessment/Plan
Right hip intertrochanteric fracture status post right hip Gamma nail fixation
-Ortho consulted, recommendations appreciated
-Surgery performed on October 03, 2023
-WBAT RLE
-PT/ OT
-ASA 325 daily for [address] Fan and ZAMZAM, hopefully will hear in near future about transfer to rehab
History of Asthma
lungs with wheeze resolved
Pt did not want Duonebs, symptoms resolved with Claritin
Acute blood loss anemia
Hgb stable at 11.0 post op
BPH
due to immobility, UA demonstrates minimal WBC/Bact consistent with chronic prostatitis
Constipation
continue Colace, Senokot
Otherwise medically stable
Full code
primary DVT PPx: Aspirin 325 mg daily
Physiatry consult appreciated
PT/OT
Potential [facility] candidate
Pt lives in [place], was visiting in-laws when fell and broke hip, if felt not a candidate for acute rehab, will need decision whether he will get PT locally or upon return to [place], pending decision on acute rehab
Claritin
Anticipated Discharge: 24 - 48 hours
Subjective/Interval History
-
Date of Service: October 06, 2023
Denies respiratory symptoms
Objective Data
-
Labs:
Laboratory Results
10/06/23
06:50
WBC 6.9
Hgb 11.0 L
Hct 31.9 L
Plt Count 187
Sodium 139
Potassium 4.3
Chloride 108 H
Carbon Dioxide 23
BUN 20
Creatinine 0.8
Glucose 88
Calcium 9.2
Vital Signs:
Vital Signs
Temp Pulse Resp BP Pulse Ox
97.9 F 78 18 116/72 99
10/06/23 08:00 10/06/23 08:00 10/06/23 08:00 10/06/23 08:00 10/06/23 08:00
I&O
10/05/23 10/06/23 10/07/23
06:59 06:59 06:59
Intake Total 1080 / 1080 320 / 320
Output Total 300 / 300
Balance 780 / 780 320 / 320
Review of Systems
-
History Source: Patient and Coordinated Provider (reviewed with ZAMZAM Wan)
Constitutional: Denies Fever
EENT: Reports Other (nasal stuffiness)
Respiratory: Reports No Symptoms; Denies Trouble Breathing (denies sob, states had hx of asthma as a child, outgrew it, though during high pollen season does require occassional doses of albuterol)
Cardiac: Reports No Symptoms
Abdomen/GI: Denies Constipated (resolved)
Genitourinary: Reports No Symptoms (hx of BPH)
Musculoskeletal: Reports Joint Pain (rt hip)
Neuro: Reports No Symptoms
Physical Exam
-
General: Well Developed, Well Nourished and No Apparent Distress
HEENT: Normocephalic, Atraumatic and Moist Mucous Membranes
Respiratory: Clear to Auscultation (totally clear); Negative Wheezes, Rales or Rhonchi
Cardiac: Regular Rhythm and S1/S2
GI: Soft, Nontender and Nondistended
Musculoskeletal: No Clubbing, No Cyanosis and No Edema
[2023-10-06 16:05] VITALS: BP 114/72
--- NOTE | 2023-10-06 16:39 | W.DS.TRANS ---
DC Summary - Welfare Worker
-
Discharge Instructions:
Discharge Diagnosis/Procedures Rt hip fx
Diet No restrictions
Activity As tolerated,With Walker
Driving Restrictions Not until seen by your Dr
Bathing Restrictions OK to Shower
Wound Care Aquacel dressings to remain in place x 7 days.
May remove in 7 days and leave open to air
Instructions:
Stand-Alone Forms:
Changes to Home Medications: Yes
Discharge Medications:
DC Medications w/original date entered in [employer]
acetaminophen 325 mg tablet 650 mg (2 x 325 mg) PO Q4HWA #90 tabs 10/06/23
albuterol sulfate 90 mcg/actuation aerosol inhaler 2 puff inhalation R Q4HPRN PRN SOB/WHEEZE #1 g 10/06/23
aluminum-mag hydroxide-simethicone 200 mg-200 mg-20 mg/5 mL oral susp (Antacid-[place]) 30 ml PO Q4HPRN PRN indigestion #8 oz 10/06/23
aspirin 325 mg tablet 325 mg PO DAILY #30 tabs 10/06/23
celecoxib 100 mg capsule 100 mg PO BID #60 caps 10/06/23
docusate sodium 100 mg capsule 100 mg PO BID #60 caps 10/06/23
loratadine 10 mg tablet 10 mg PO DAILY #30 tabs 10/06/23
magnesium hydroxide 400 mg/5 mL oral suspension 30 ml PO DAILYPRN PRN constipation #8 oz 10/06/23
oxycodone 5 mg tablet 5 mg PO Q4HPRN PRN mild pain #12 tabs 10/06/23
sennosides 8.6 mg tablet (Senna Laxative) 17.2 mg (2 x 8.6 mg) PO BID #30 tabs 10/06/23
tamsulosin 0.4 mg capsule 0.4 mg PO DAILYPRN PRN bladder scan volume > 400 mL #30 caps 10/06/23
Home Medication Changes
all above meds are new except for albuterol
Pending Results: No
== END 2023-10-06 17:13 | DRG 481 ==
LOC: 2 SOUTH 20:37
PROVIDERS: Hospitalist; ADMITTING PHYSICIAN Internal Medicine; ATTENDING PHYSICIAN Internal Medicine; CONSULT PHYSICIAN Orthopaedic Surgery; CONSULT PHYSICIAN Physical Medicine & Rehabilitation; EMERGENCY PHYSICIAN Emergency Medicine
PROC: 0QS604Z Reposition Right Upper Femur with Internal Fixation Device, Open Approach (ICD-10-PCS; 2023-10-03)
DX: S72.144A Nondisplaced intertrochanteric fracture of right femur, initial encounter for closed fracture (principal); D62 Acute posthemorrhagic anemia; K59.09 Other constipation; N41.1 Chronic prostatitis
CPT/HCPCS: 88305; 88311; 73502; 73552; 76000; 80048; 80053; 81003; 81015; 85025; 85027; 96374; 97110; 97116; 97162; 97166; 97530; 97535; 99284; C1713; C1769